=== PATIENT | female | born 1995 | race Hispanic/Latino ===

== ENCOUNTER 2019-01-09 11:39 | Observation (INO) | payer MEDICAID ==
[2019-01-09 13:25] LABS: APPEARANCE,URINE Cloudy (CLEAR); BILIRUBIN,URINE Negative (NEGATIVE); COLOR,URINE Yellow (YELLOW); GLUCOSE, URINE (UA) Negative (NEGATIVE); KETONES,URINE 40 mg/dL (NEGATIVE); LEUKOCYTE ESTERASE ,URINE Small (NEGATIVE); NITRATE,URINE Negative (NEGATIVE); OCCULT BLOOD,URINE Negative (NEGATIVE); PROTEIN,URINE Negative (NEGATIVE); UROBILINOGEN,URINE 0.2 mg/dL (0.2-1.0)
[2019-01-09 13:37] LABS: BACTERIA,URINE Rare /HPF (None Seen); MUCUS,URINE Many LPF (None Seen); RBC,URINE 0-1 /HPF (0-1); SQUAMOUS EPITHELIAL CELL,UR Few /HPF (0-2)
[2019-01-09] MEDS ORDERED: PROMETHAZINE HCL 25 MG/ML 1ML AMPULE IM SCH (14:27)
[2019-01-09] MEDS ORDERED: LACTATED RINGERS 1000ML 1,000 ML IV SCH (14:27)
[2019-01-09] MEDS ORDERED: LACTATED RINGERS 1000ML 2,000 ML IV ONE (14:55)
[2019-01-09] MEDS ORDERED: PROMETHAZINE HCL 25 MG/ML 1ML AMPULE IM ONE (14:55)
== END 2019-01-09 18:12 | disposition home or self-care (01) ==
LOC: EDH 11:39 → LDH 11:40
PROVIDERS: ADMIT Specialist; ATTEND Specialist
DX: O21.2 Late vomiting of pregnancy (principal); Z3A.27 27 weeks gestation of pregnancy
CPT/HCPCS: 81001; 99284; G0378 ×7; J2550; J7120 ×3; 96360; 96361

== ENCOUNTER 2019-02-19 10:55 | Observation (INO) | payer MEDICAID ==
[2019-02-19 11:26] LABS: APPEARANCE,URINE Clear (CLEAR); BILIRUBIN,URINE Negative (NEGATIVE); COLOR,URINE Yellow (YELLOW); GLUCOSE, URINE (UA) Negative (NEGATIVE); KETONES,URINE Negative (NEGATIVE); LEUKOCYTE ESTERASE ,URINE Negative (NEGATIVE); NITRATE,URINE Negative (NEGATIVE); OCCULT BLOOD,URINE Large (NEGATIVE); PH,URINE 6.5 (5.0-8.0); PROTEIN,URINE POS 2+ mg/dL (NEGATIVE)
[2019-02-19 11:41] LABS: BACTERIA,URINE Rare /HPF (None Seen); RBC,URINE 51-100 /HPF (0-1); WBC,URINE None Seen /HPF (0-1)
[2019-02-19 12:43] LABS: BASOPHILS % (AUTO) 0.4 % (0.0-5.0); EOSINOPHILS % (AUTO) 0.7 % (0.0-8.0); HEMATOCRIT 27.8 % (36-48); LYMPHOCYTES % (AUTO) 22.1 % (21.0-51.0); MEAN CORPUSCULAR HEMOGLOBIN 26.9 pg (27.0-33.0); MEAN CORPUSCULAR HGB CONC 32.9 g/dL (32.0-36.0); MEAN CORPUSCULAR VOLUME 81.7 fL (79-99); MONOCYTES % (AUTO) 8.3 % (3.0-13.0); NEUTROPHILS % (AUTO) 68.5 % (40.0-77.0); PLATELET COUNT (AUTO) 315 K/uL (130-400); RED CELL DISTRIBUTION WIDTH 15.6 % (11.0-15.5); WHITE BLOOD COUNT (AUTO) 8.2 K/uL (4.8-10.8)
[2019-02-19] MEDS ORDERED: LACTATED RINGERS 1000ML 1,000 ML IV ONE (15:19)
[2019-02-19] MEDS ORDERED: CEFTRIAXONE SODIUM 1 GM ONE ×2 (15:19→16:14)
[2019-02-19] MEDS ORDERED: CEFTRIAXONE SODIUM 1 GM IM SCH (15:30)
[2019-02-19] MEDS ORDERED: LIDOCAINE HCL-MPF 1% 2ML VIAL ONE (16:14)
== END 2019-02-19 16:21 | disposition home or self-care (01) ==
LOC: EDH 10:55 → LDH 10:56
DX: O42.913 Preterm premature rupture of membranes, unspecified as to length of time between rupture and onset of labor, third trimester (principal); O26.893 Other specified pregnancy related conditions, third trimester; M54.5 Low back pain; Z3A.33 33 weeks gestation of pregnancy
CPT/HCPCS: 36415; 59025; 76805; 81001; 82120; 85025; 99284; G0378 ×5; J0696 ×2; J3490; J7120

== ENCOUNTER 2019-03-16 00:08 | Observation (INO) | payer MEDICAID ==
[~2019-03-16] VITALS: Ht 154.9 cm; Wt 77.1 kg
[2019-03-16 00:35] VITALS: BP 109/69
[2019-03-16] MEDS ORDERED: PREN1TAB80 PO (00:35)
[2019-03-16 01:02] LABS: APPEARANCE,URINE Clear (CLEAR); BILIRUBIN,URINE Negative (NEGATIVE); COLOR,URINE Yellow (YELLOW); GLUCOSE, URINE (UA) Negative (NEGATIVE); KETONES,URINE Negative (NEGATIVE); LEUKOCYTE ESTERASE ,URINE Small (NEGATIVE); NITRATE,URINE Negative (NEGATIVE); OCCULT BLOOD,URINE Large (NEGATIVE); PH,URINE 5.5 (5.0-8.0); PROTEIN,URINE Trace mg/dL (NEGATIVE)
[2019-03-16] MEDS ORDERED: LACTATED RINGERS 1000ML 1,000 ML IV PRN (01:06)
[2019-03-16] MEDS ORDERED: AMPICILLIN 2GM+NS 100ML 100 ML IV SCH (01:15)
[2019-03-16] MEDS ORDERED: LACTATED RINGERS 1000ML 1,000 ML IV SCH (01:15)
[2019-03-16 01:27] LABS: BACTERIA,URINE Few /HPF (None Seen); MUCUS,URINE Moderate LPF (None Seen); SQUAMOUS EPITHELIAL CELL,UR Few /HPF (0-2)
[2019-03-16 02:35] LABS: HEMATOCRIT 28.1 % (36-48); MEAN CORPUSCULAR HEMOGLOBIN 25.9 pg (27.0-33.0); MEAN CORPUSCULAR HGB CONC 32.8 g/dL (32.0-36.0); MEAN CORPUSCULAR VOLUME 79.1 fL (79-99); PLATELET COUNT (AUTO) 283 K/uL (130-400); RED BLOOD CELL COUNT(AUTO) 3.55 MIL/uL (4.00-5.50); WHITE BLOOD COUNT (AUTO) 9.1 K/uL (4.8-10.8)
[2019-03-16] MEDS ORDERED: AMPICILLIN 1GM+NS 50ML 50 ML IV SCH (05:15)
[2019-03-19 06:14] LABS: HEPATITIS Bs ANTIGEN SCREEN P Negative (Negative)
== END 2019-03-16 07:35 | disposition home or self-care (01) ==
LOC: EDH 00:08 → OBSVTOIN 00:09 → INTOOBSV 00:09 → LDH 00:09
DX: O46.93 Antepartum hemorrhage, unspecified, third trimester (principal); O62.9 Abnormality of forces of labor, unspecified; Z3A.36 36 weeks gestation of pregnancy
CPT/HCPCS: 36415; 81001; 85027; 86592; 86850; 86900; 86901; 87340; 96365; 99284; G0378 ×7; J0290 ×2; J7120 ×2; 96360; 96361